=== PATIENT | female | born 1990 | race Caucasian/White ===

== ENCOUNTER 2018-06-02 23:26 | Emergency (ER) | payer SELFPAY ==
[~2018-06-02] VITALS: Ht 162.6 cm; Wt 54.9 kg
[2018-06-03] MEDS ORDERED: IBUPROFEN600 MG ORAL (00:02)
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
[2018-06-03 00:22] VITALS: BP 121/82
[2018-06-03 03:25] VITALS: BP 121/82
== END 2018-06-03 00:22 | disposition home or self-care (01) ==
LOC: EDBD 23:26 → EMR 23:59
DX: S01.112A Laceration without foreign body of left eyelid and periocular area, initial encounter (principal); V43.62XA Car passenger injured in collision with other type car in traffic accident, initial encounter; Y92.410 Unspecified street and highway as the place of occurrence of the external cause
CPT/HCPCS: 99283